=== PATIENT | female | born 1975 | race Caucasian/White ===

== ENCOUNTER 2018-08-18 01:27 | Emergency (ER) | payer OTHER ==
[2018-08-18] MEDS: CIPROFLOXACIN 500 MG TAB PO (02:12)
== END 2018-08-18 03:00 | disposition home or self-care (01) ==
LOC: FTE 01:27 → E/R 03:00
DX: Z20.811 Contact with and (suspected) exposure to meningococcus (principal); I10 Essential (primary) hypertension
CPT/HCPCS: 99283; Z7502